=== PATIENT | male | born 1980 | race Caucasian/White ===

== ENCOUNTER 2016-10-07 17:31 | Emergency (ER) | payer OTHER ==
[2016-10-07 17:54] VITALS: BP 109/62; PULSE 69; RESP 18; TEMP 98; O2SAT 97
--- NOTE | 2016-10-07 18:02 | UCPHY ---
H & P Time Seen by Provider: 10/07/16 17:51 Patient Type: New HPI/ROS: CHIEF COMPLAINT: My left ear is plugged up HISTORY OF PRESENT ILLNESS: 35-year-old male complaining of decreased hearing and feeling that his left ear is plugged up since this morning. No barotrauma. No otalgia. No otorrhea. No tinnitus. No vertigo. No dizziness. No nausea or vomiting. No headache. No sore throat or recent/ antecedent URI symptoms. PHYSICAL EXAM (Prior to examination, patient consented to physical exam, hands were washed and my usual and customary physical exam procedures followed) 1) GENERAL: Well-developed, well-nourished, alert and oriented. Appears to be in no acute distress. 2) HEAD: Normocephalic 3) HEENT: sclera anicteric. Oropharynx clear no trismus no drooling no lesions. Right ear clear EAC, tympanic membrane intact no evidence of otitis media or otitis externa. Left ear: No otorrhea, no crusting at the meatus of the EAC, left mastoid nontender non boggy. Cerumen impaction is noted deep in the external auditory canal. Unable to visualize the tympanic membrane. No pre or postauricular adenopathy 4) LUNGS: Breathing comfortably. [5) neck: No adenopathy. Smoking Status: Never smoked Constitutional: Initial Vital Signs Temperature (C) 36.6 C 10/07/16 17:51 Heart Rate 69 10/07/16 17:51 Respiratory Rate 18 10/07/16 17:51 Blood Pressure 109/62 10/07/16 17:51 O2 Sat (%) 97 10/07/16 17:51 O2 Delivery Mode Room Air Allergies/Adverse Reactions: No Known Allergies Allergy (Verified 03/09/12 11:43) Home Medications: Medication Instructions Recorded No Medications [NO HOME 03/09/12 MEDICATIONS] Carbamide Peroxide [Debrox Ear 5 drop EACHEAR BID #0 btl 10/07/16 drops (OTC)] MDM/Departure - MDM ED Course/Re-evaluation: Discussed options with the patient, offered to perform manual debridement which he declines. He prefers Debrox and follow up with ENT. - Depart Disposition: Home, Routine, Self-Care Clinical Impression: Impacted cerumen of left ear Condition: Good Instructions: Cerumen Impaction (ED) Prescriptions: Carbamide Peroxide [Debrox Ear drops (OTC)] 5 drop EACHEAR BID #0 btl Referrals: Soto John MD [Medical Doctor] - 2-3 days, call for appt. (Dr. Soto John is an ear nose throat doctor) - PQRS PQRS Measurement: Not applicable
== END 2016-10-07 18:12 | disposition home or self-care (01) ==
LOC: CED 17:31
DX: H61.22 Impacted cerumen, left ear (principal)
CPT/HCPCS: 99203-PO; G0463-PO